=== PATIENT | female | born 1975 | race Caucasian/White ===

== ENCOUNTER → 2017-04-09 | Outpatient (CLI) | payer BC, OTHER ==
--- NOTE | ~2017-04-09 | 2DMMODE ---
[facility] [address] [place] [address] 2 D/M-MODE ECHOCARDIOGRAM Name: PARRIS CALVO Room #: [id number] Admission: 04/09/17 Attend Phys: Dat Mobley Discharge: Date of : 73 Date of Service: 04/09/17 1052 Report #: [id number] THIS REPORT FOR: //name// APPROVED REPORT Study performed: 04/09/2017 08:04:59 EXAM: Comprehensive 2D, Doppler, and color-flow Echocardiogram Patient Location: Out-Patient Room #: Echo lab Status: routine Other Information Study Quality: Good Indications Dyspnea 2D Dimensions RVDd: 30.24 mm LVEF(%): 60.66 (>50%) IVSd: 9.31 (7-11mm) LVOT Diam: 18.33 (18-24mm) LVDd: 42.67 mm PWd: 8.49 (7-11mm) Ascending Ao: 25.75 (22-36mm) LVDs: 28.95 (25-40mm) Aortic Root: 25.41 mm IVC: 14.00 mm Carias's LVEF: 60.66 % Volumes Left Atrial Volume (Systole) Single Plane 4CH: 24.87 mL Single Plane 2CH: 32.82 mL LA ESV Index: 17.00 mL/m2 Aortic Valve AoV Peak Camden.: 1.30 m/s AO Peak Gr.: 6.80 mmHg LVOT Max P.53 mmHg LVOT Max V: 1.18 m/s VALERY Vmax: 2.38 cm2 Mitral Valve E/A Ratio: 1.6 MV Decel. Time: 213.75 ms MV E Max Camden.: 1.05 m/s MV A Camden.: 0.67 m/s MV PHT: 61.99 ms IVRT: 73.[address] [facility] [place] [address] 2 D/M-MODE ECHOCARDIOGRAM Name: PARRIS CALVO Room #: REG [facility]#: [id number] Admission: 04/09/17 Attend Phys: Dat Mobley Discharge: Date of : 73 Date of Service: 04/09/17 1052 Report #: [id number] Pulmonary Valve PV Peak Camden.: 1.01 m/s PV Peak Gr.: 4.08 mmHg Pulmonary Vein P Vein S: 0.54 m/s P Vein A: 0.22 m/s P Vein D: 0.64 m/s P Vein A Dur.: 92.3 msec P Vein S/D Ratio: 0.84 Tricuspid Valve TR Peak Camden.: 2.49 m/s RAP Estimate: 5.00 mmHg TR Peak Gr.: 24.86 mmHg PA Pressure: 30.00 mmHg Left Ventricle The left ventricle is normal size. There is normal left ventricular wall thickness. The left ventricular systolic function is normal. The left ventricular ejection fraction is within the normal range. LVEF is 55-60%. The left ventricular diastolic function is normal. Right Ventricle The right ventricle is normal size. The right ventricular systolic function is normal. Atria The left atrium size is normal. The right atrium size is normal. Aortic Valve The aortic valve is normal in structure. No aortic regurgitation is present. There is no aortic valvular stenosis. Mitral Valve The mitral valve is normal in structure. There is no mitral valve regurgitation noted. No evidence of mitral valve stenosis. Tricuspid Valve The tricuspid valve is normal in structure. There is trace to mild tricuspid regurgitation. The right atrial pressure is estimated at 5 mmHg. There is no pulmonary hypertension. Pulmonic Valve The pulmonary valve is normal in structure. There is no pulmonic valvular regurgitation. Great Vessels [facility] [address] [place] [address] 2 D/M-MODE ECHOCARDIOGRAM Name: PARRIS CALVO CLIVE Room #: REG CL Saroj#: [id number] Admission: 04/09/17 Attend Phys: Dat Mobley Discharge: Date of : 73 Date of Service: 04/09/17 1052 Report #: [id number] The aortic root is normal in size. IVC is normal in size and collapses >50% with inspiration. Pericardium There is no pericardial effusion. <Conclusion> The left ventricle is normal size. LVEF is 55-60%. The aortic valve is normal in structure. The mitral valve is normal in structure. The tricuspid valve is normal in structure. There is trace to mild tricuspid regurgitation. The right atrial pressure is estimated at 5 mmHg. There is no pulmonary hypertension. The pulmonary valve is normal in structure. <ELECTRONICALLY SIGNED> By: Wilmer Jones MD 04/09/17 1052 [id number] Wilmer Jones MD /INF
== END ==
LOC: CV 04-01 06:21
DX: R06.00 Dyspnea, unspecified (principal)